=== PATIENT | female | born 1980 | race Caucasian/White ===

== ENCOUNTER 2020-09-20 20:39 | Emergency (ER) | payer OTHER ==
[2020-09-20 20:47] VITALS: TEMP 98.4; BMI 30.4
[2020-09-20] MEDS ORDERED: SODIUM CHLORIDE 1,000 ML IV STA (21:02)
[2020-09-20] MEDS ORDERED: ACETAMINOPHEN 325 MG TABLET (FP) PO ONE (21:02)
[2020-09-20] MEDS ORDERED: ACETAMINOPHEN 325 MG TABLET (FP) ONE (21:16)
[2020-09-20 21:30] LABS: BASO % 0.4 % (0-2.0); HEMATOCRIT 37.6 % (32.4-45.2); HEMOGLOBIN 12.2 GM/dL (10.7-15.3); LYMPH % 22.9 % (8-40); MCHC 32.5 g/dl (32.0-36.0); MEAN CELL VOLUME 83.3 fl (80-96); MEAN PLT VOLUME 8.8 fl (7.5-11.1); MONO % 5.2 % (3.8-10.2); NEUT % 70.5 % (42.8-82.8); PLATELET COUNT 332 K/MM3 (134-434); RBC 4.52 M/mm3 (3.60-5.2); RDW 14.1 % (11.6-15.6); WHITE BLOOD COUNT 8.9 K/mm3 (4.0-10.0)
[2020-09-20] MEDS ORDERED: KETOROLAC TROMETHAMINE 10 MG TABLET PO ONE ×2 (21:43→21:48)
[2020-09-20 21:44] LABS: CHLORIDE 110 mmol/L (98-107); SODIUM 139 mmol/L (136-145)
[2020-09-20 21:45] LABS: ALBUMIN 3.5 g/dl (3.4-5.0); CALCIUM 8.8 mg/dL (8.5-10.1); GLUCOSE,RANDOM 98 mg/dL (74-106)
[2020-09-20 21:46] LABS: ANION GAP 6 MMOL/L (8-16); BLOOD UREA NITROGEN 10.8 mg/dL (7-18); CO2 23 mmol/L (21-32)
[2020-09-20 21:48] LABS: CREATININE 0.7 mg/dL (0.55-1.3); SGOT/AST 13 U/L (15-37); SGPT/ALT 24 U/L (13-61)
[2020-09-20 21:51] LABS: BILIRUBIN,TOTAL 0.5 mg/dL (0.2-1); TOT PROT 7.1 g/dl (6.4-8.2)
[2020-09-20 21:52] LABS: ALK PHOS 62 U/L (45-117)
[2020-09-20 22:08] LABS: INR 0.82 (0.83-1.09); PROTHROMBIN TIME (PATIENT) 10.2 SEC (9.7-13.0)
[2020-09-20 22:10] LABS: ACTIVATED PTT 27.5 SECONDS (25.2-36.5)
[2020-09-20 22:41] VITALS: BP 146/84; PULSE 97
== END 2020-09-20 22:41 | disposition home or self-care (01) ==
LOC: JER 20:39
PROC: 3E0337Z Introduction of Electrolytic and Water Balance Substance into Peripheral Vein, Percutaneous Approach (ICD-10-PCS; principal; 2020-09-20)
DX: R07.9 Chest pain, unspecified (principal); I10 Essential (primary) hypertension
CPT/HCPCS: 36415; 71045-TC-FY; 80053; 82550; 84484; 84703; 85025; 85379; 85610; 85730; 93005; 93010; 99285-25